=== PATIENT | female | born 1955 | race Two or more races ===

== ENCOUNTER 2016-11-23 19:32 | Emergency (ER) | payer SELFPAY ==
[~2016-11-23] VITALS: Ht 160 cm; Wt 65.3 kg
[~2016-11-23 19:32] MED LIST: AMLODIPINE BESY10 MG ORAL; TRAMADOL HCL50 MG ORAL; TYLENOL325 MG ORAL
[2016-11-23 19:44] VITALS: BP 195/90
[2016-11-23] MEDS ORDERED: Nitroglycerin Subl 0.4mg tab (Bottle Of 25) SL PRN (19:45)
--- NOTE | 2016-11-23 20:02 | Emergency Room Report ---
History of Present Illness General Chief Complaint: Chest Pain Source: Patient Present Illness HPI This patient presents with chest pain for the past 2 hours. She describes it as middle of the chest and epigastrium. She denies recent illness. She denies fever or chills. She has no other complaints. Allergies: Coded Allergies: No Known Allergies (Unverified , 09/17/15) Patient History Past Medical History: see triage record, DM, HTN Social History: Denies: alcohol use, drug use, smoking Last Menstrual Period: N/A Now: No Reviewed Nursing Documentation: PMH: Agreed, PSxH: Agreed Nursing Documentation-PMH Hx Hypertension: Yes Hx Diabetes: Yes Review of Systems All Other Systems: negative except mentioned in HPI Physical Exam Vital Signs Date Time Temp Pulse Resp B/P Pulse Ox O2 Delivery O2 Flow Rate FiO2 11/23/16 19:36 97.0 71 24 195/90 100 Room Air Sp02 EP Interpretation: reviewed, normal General Appearance: no apparent distress, alert, GCS 15, non-toxic Head: normocephalic, atraumatic Eyes: bilateral eye PERRL, bilateral eye normal inspection ENT: hearing grossly normal, normal pharynx, no angioedema, normal voice Neck: full range of motion, supple/symm/no masses Respiratory: chest non-tender, lungs clear, normal breath sounds, speaking full sentences Cardiovascular #1: regular rate, rhythm, no edema Gastrointestinal: normal bowel sounds, non tender, soft, non-distended, no guarding, no rebound Rectal: deferred Musculoskeletal: back normal, gait/station normal, normal range of motion, non- tender Neurologic: alert, oriented x3, responsive, motor strength/tone normal, sensory intact, speech normal Psychiatric: judgement/insight normal, memory normal, mood/affect normal, no suicidal/homicidal ideation Skin: normal color, no rash, warm/dry, well hydrated Medical Decision Making Diagnostic Impression: Primary Impression: Chest pain Additional Impressions: Acute electrocardiogram changes ST segment changes on electrocardiogram ER Course This patient presents with chest pain and dynamic EKG changes. Initial EKG on arrival shows significant ST segment depressions in leads V4, V5, V6, II, III and aVF. This is new from a comparison EKG on 09/17/2015. The patient was given aspirin and nitroglycerin. After the first way of nitroglycerin the patient had resolution of her symptoms. Repeat EKG shows significant improvement in the ST segment depressions in leads stated above. I felt that this patient has dynamic EKG changes and will need an angiogram. Therefore, I felt this patient should be transferred for higher level of care. The patient was accepted to [facility]. Labs Test 11/23/16 19:50 White Blood Count 8.7 K/UL (4.8-10.8) Red Blood Count 5.13 M/UL (4.20-5.40) Hemoglobin 15.9 G/DL (12.0-16.0) Hematocrit 46.4 % (37.0-47.0) Mean Corpuscular Volume 91 FL (80-99) Mean Corpuscular Hemoglobin 31.0 PG (27.0-31.0) Mean Corpuscular Hemoglobin Concent 34.2 G/DL (32.0-36.0) Red Cell Distribution Width 11.5 % (11.6-14.8) Platelet Count 159 K/UL (150-450) Mean Platelet Volume 13.7 FL (6.5-10.1) Neutrophils (%) (Auto) 40.8 % (45.0-75.0) Lymphocytes (%) (Auto) 47.6 % (20.0-45.0) Monocytes (%) (Auto) 7.7 % (1.0-10.0) Eosinophils (%) (Auto) 3.0 % (0.0-3.0) Basophils (%) (Auto) 1.0 % (0.0-2.0) Prothrombin Time 9.7 SEC (9.30-11.50) Prothromb Time International Ratio 0.9 (0.9-1.1) Activated Partial Thromboplast Time 28 SEC (23-33) Sodium Level 141 mEQ/L (135-145) Potassium Level 4.1 mEQ/L (3.4-4.9) Chloride Level 101 mEQ/L (98-107) Carbon Dioxide Level 27 mEQ/L (20-30) Anion Gap 13 (5-15) Blood Urea Nitrogen 14 mg/dL (7-23) Creatinine 0.9 mg/dL (0.5-0.9) Estimat Glomerular Filtration Rate > 60 mL/min (>60) Glucose Level 156 mg/dL (74-106) Calcium Level 9.4 mg/dL (8.6-10.2) Total Bilirubin 0.4 mg/dL (0.0-1.2) Aspartate Amino Transf (AST/SGOT) 27 U/L (5-40) Alanine Aminotransferase (ALT/SGPT) 27 U/L (3-33) Alkaline Phosphatase 95 U/L (35-104) Total Creatine Kinase 123 U/L (26-140) Troponin I < 0.30 ng/mL (<=0.30) Total Protein 8.3 g/dL (6.6-8.7) Albumin 4.7 g/dL (3.5-5.2) Globulin 3.6 g/dL Albumin/Globulin Ratio 1.3 (1.0-2.7) EKG Diagnostic Results Rate: normal Rhythm: NSR ST Segments: other Other Impression ST segment depressions in leads 2, 3, aVF, V4, V5, V6. Repeat EKG: Significant improvement in ST segment depressions of the above leads. This was done when the patient was chest pain-free. Rhythm Strip Diag. Results EP Interpretation: yes Rate: 60's Rhythm: NSR, no PVC's, no ectopy Chest X-Ray Diagnostic Results Chest X-Ray Diagnostic Results : Chest X-Ray Ordered: Yes # of Views/Limited/Complete: 1 View Indication: Chest Pain EP Interpretation: Yes Interpretation: no consolidation, no effusion, no pneumothorax, no acute cardiopulmonary disease Impression: No acute disease Last Vital Signs Date Time Temp Pulse Resp B/P Pulse Ox O2 Delivery O2 Flow Rate FiO2 11/23/16 19:36 97.0 71 24 195/90 100 Room Air [facility] Condition: Serious AYSE BETANCOURT D.O. Nov 23, 2016 20:02
[2016-11-23 20:26] LABS: LYMPHOCYTES % (AUTO) 47.6 % (20.0-45.0); MEAN CORPUSCULAR HGB CONC 34.2 G/DL (32.0-36.0); MEAN CORPUSCULAR VOLUME 91 FL (80-99); MEAN PLATELET VOLUME 13.7 FL (6.5-10.1); MONOCYTES % (AUTO) 7.7 % (1.0-10.0); NEUTROPHILS % (AUTO) 40.8 % (45.0-75.0); PLATELET COUNT 159 K/UL (150-450); RED BLOOD COUNT 5.13 M/UL (4.20-5.40); RED CELL DISTRIBUTION WIDTH 11.5 % (11.6-14.8); WHITE BLOOD COUNT 8.7 K/UL (4.8-10.8)
[2016-11-23 20:38] LABS: INR 0.9 (0.9-1.1); PROTHROMBIN TIME 9.7 SEC (9.30-11.50)
[2016-11-23 20:43] LABS: TROPONIN I < 0.30 ng/mL (<=0.30)
[2016-11-23] MEDS ORDERED: Heparin 25,000u/D5W 500ml 500 ML IV SCH (20:45)
[2016-11-23] MEDS ORDERED: Heparin 5000 units/ml inj IV ONE (20:45)
[2016-11-23 20:48] LABS: ALANINE AMINOTRANSFERASE 27 U/L (3-33); ALBUMIN/GLOBULIN RATIO 1.3 (1.0-2.7); ANION GAP 13 (5-15); ASPARTATE AMINO TRANSFERASE 27 U/L (5-40); CALCIUM 9.4 mg/dL (8.6-10.2); CARBON DIOXIDE 27 mEQ/L (20-30); CHLORIDE 101 mEQ/L (98-107); CREATININE 0.9 mg/dL (0.5-0.9); GLOMERULAR FILTRATION RATE > 60 mL/min (>60); HEMOLYSIS 6; POTASSIUM 4.1 mEQ/L (3.4-4.9); SODIUM 141 mEQ/L (135-145); TOTAL PROTEIN 8.3 g/dL (6.6-8.7)
[2016-11-23 20:58] LABS: CKMB 1.7 ng/mL (< 3.8)
[2016-11-23 22:07] VITALS: BP 126/32
[2016-11-23 22:10] VITALS: BP 126/72
--- NOTE | 2016-11-26 08:04 | Diagnostic Imaging Report ---
Indication: Chest pain Technique: One view of the chest Comparison: 09/17/2015 Findings: Lungs and pleural spaces are clear. Heart size is normal. There is no significant interim change Impression: Negative
--- NOTE | 2016-11-26 18:18 | Cardiology Report ---
APPROVED REPORT EKG Measurement Heart [id number] Normal sinus rhythm ST segment depression (squared ST segment) suggestive of inferolateral wall ischemia. Abnormal ECG
== END 2016-11-23 22:30 | disposition short-term general hospital (02) ==
LOC: EMR 19:51
DX: R07.9 Chest pain, unspecified (principal); R94.31 Abnormal electrocardiogram [ECG] [EKG]; I10 Essential (primary) hypertension; E11.9 Type 2 diabetes mellitus without complications
CPT/HCPCS: 36415; 71010; 80053; 82550; 82553; 84484; 85025; 85610; 85730; 93005; 96374; 96375; 99285; J1644